=== PATIENT | female | born 1980 | race Caucasian/White ===

== ENCOUNTER → 2020-06-04 10:34 | Outpatient (BNVA) | payer BC, SELFPAY | PROVIDERS: Visit Provider Internal Medicine | DX: E11.65 Type 2 diabetes mellitus with hyperglycemia (principal); E28.2 Polycystic ovarian syndrome; E66.9 Obesity, unspecified; E78.2 Mixed hyperlipidemia; L65.9 Nonscarring hair loss, unspecified; R53.82 Chronic fatigue, unspecified; R63.5 Abnormal weight gain | CPT/HCPCS: 99205 ==